=== PATIENT | male | born 1960 | race Caucasian/White ===

== ENCOUNTER 2016-09-21 15:20 | Emergency (ER) | payer SELFPAY ==
[2016-09-21 18:18] LABS: ABSOLUTE BASOPHILS # (AUTO) 0.1 10^3/uL (0.0-0.2); ABSOLUTE EOSINOPHILS # (AUTO) 0.2 10^3/uL (0.0-0.6); ABSOLUTE LYMPHOCYTES (AUTO) 1.2 10^3/uL (0.5-4.7); ABSOLUTE MONOCYTES (AUTO) 0.5 10^3/uL (0.1-1.4); ABSOLUTE NEUT (AUTO) 5.4 10^3/uL (1.7-8.2); BASOPHILS % (AUTO) 0.8 % (0-2); EOSINOPHILS % (AUTO) 3.1 % (0-6); HEMATOCRIT 43.1 % (37.9-51.0); HEMOGLOBIN 14.9 g/dL (13.5-17.0); HGB HCT DIFFERENCE 1.6; LYMPHOCYTES % (AUTO) 16.6 % (13-45); MEAN CORPUSCULAR HEMOGLOBIN 30.7 pg (27.0-33.4); MEAN CORPUSCULAR HGB CONC 34.5 g/dL (32.0-36.0); MEAN CORPUSCULAR VOLUME 89 fl (80-97); MONOCYTES % (AUTO) 6.9 % (3-13); RED BLOOD COUNT 4.85 10^6/uL (4.35-5.55); RED CELL DISTRIBUTION WIDTH 13.4 % (11.5-14.0); SEGMENTED NEUTROPHILS % (AUTO) 72.6 % (42-78); WHITE BLOOD COUNT 7.5 10^3/uL (4.0-10.5)
[2016-09-21] MEDS ORDERED: ONDANSETRON 4 MG TAB.RAPDIS SL ONE (18:27)
[2016-09-21 18:35] LABS: ALANINE AMINOTRANSFERASE 53 U/L (21-72); ALBUMIN 4.3 g/dL (3.5-5.0); ALKALINE PHOSPHATASE 51 U/L (38-126); ANION GAP 11 (5-19); ASPARTATE AMINO TRANSFERASE 25 U/L (17-59); BILIRUBIN,DIRECT 0.3 mg/dL (0.0-0.4); BILIRUBIN,TOTAL 0.9 mg/dL (0.2-1.3); BLOOD UREA NITROGEN 19 mg/dL (7-20); CALCIUM 9.6 mg/dL (8.4-10.2); CARBON DIOXIDE 27 mmol/L (22-30); CHLORIDE 106 mmol/L (98-107); CREATININE RESULT 1.13 mg/dL (0.52-1.25); GLUCOSE 102 mg/dL (75-110); LIPASE 387.1 U/L (23-300); POTASSIUM 4.4 mmol/L (3.6-5.0); TOTAL PROTEIN 7.5 g/dL (6.3-8.2)
--- NOTE | 2016-09-21 18:57 | ER Document Report ---
ED GI/ - General Chief Complaint: Abdominal Pain Stated Complaint: ABDOMINAL PAIN/RIGHT SHOULDER PAIN Time seen by provider: 18:57 Mode of Arrival: Ambulatory Information source: Patient TRAVEL OUTSIDE OF THE [place] IN LAST 30 DAYS: No - HPI Patient complains to provider of: Abdominal pain Onset: Yesterday Timing/Duration: Gradual Quality of pain: Achy Severity at maximum: Mild Severity in ED: Mild Location: Epigastric Associated symptoms: Nausea Exacerbated by: Denies Relieved by: Denies Similar symptoms previously: No Recently seen / treated by doctor: No Notes: 09/21/16 20:04 Patient is a 56-year-old male who presents to the emergency room complaining of epigastric pain with left shoulder pain and nausea that started yesterday evening, he reports that on Sunday he had a cardioversion performed in [place] , and over the past few days he was supposed to take it easy but he may have overdone it, he had a couple alcoholic beverages yesterday as well, denies any vomiting, no diarrhea, no fever or chills, no dysuria or hematuria, no sick contacts and no questionable food intake - Related Data Allergies/Adverse Reactions: No Known Allergies Allergy (Unverified 05/29/15 14:36) Past Medical History - General Information source: Patient - Social History Smoking Status: Never Smoker Chew tobacco use (# tins/day): No Frequency of alcohol use: Social Drug Abuse: Marijuana Family History: Reviewed & Not Pertinent Patient has suicidal ideation: No Patient has homicidal ideation: No - Past Medical History Cardiac Medical History: Reports: Hx Atrial Fibrillation, Hx Hypertension Renal/ Medical History: Denies: Hx Peritoneal Dialysis Past Surgical History: Reports: Hx Orthopedic Surgery - R hand R foot - Immunizations Hx Diphtheria, Pertussis, Tetanus Vaccination: No Review of Systems - Review of Systems Constitutional: No symptoms reported EENT: No symptoms reported Cardiovascular: No symptoms reported Respiratory: No symptoms reported Gastrointestinal: See HPI Genitourinary: No symptoms reported Male Genitourinary: No symptoms reported Musculoskeletal: See HPI Skin: No symptoms reported Hematologic/Lymphatic: No symptoms reported Neurological/Psychological: No symptoms reported -: Yes All other systems reviewed and negative Physical Exam - Vital signs Vitals: Temp Pulse Resp BP Pulse Ox 98.2 F 109 H 16 157/108 H 96 09/21/16 15:37 09/21/16 15:37 09/21/16 15:37 09/21/16 15:37 09/21/16 15:37 Interpretation: Normal - General General appearance: Appears well, Alert - HEENT Head: Normocephalic, Atraumatic Eyes: Normal Pupils: PERRL - Respiratory Respiratory status: No respiratory distress Chest status: Nontender Breath sounds: Normal Chest palpation: Normal - Cardiovascular Rhythm: Irregularly irregular Heart sounds: Normal auscultation Murmur: No - Abdominal Inspection: Normal, Obese Distension: No distension Bowel sounds: Normal Tenderness: Tender - Mild epigastric tenderness Organomegaly: No organomegaly - Back Back: Normal, Nontender - Extremities General upper extremity: Normal inspection, Nontender, Normal color, Normal ROM , Normal temperature General lower extremity: Normal inspection, Nontender, Normal color, Normal ROM , Normal temperature, Normal weight bearing. No: Nilda's sign - Neurological Neuro grossly intact: Yes Cognition: Normal Orientation: AAOx4 Saloni Coma Scale Eye Opening: Spontaneous [place] Coma Scale Verbal: Oriented [place] Coma Scale Motor: Obeys Commands Saloni Coma Scale Total: 15 Speech: Normal Motor strength normal: LUE, RUE, LLE, RLE Sensory: Normal - Psychological Associated symptoms: Normal affect, Normal mood - Skin Skin Temperature: Warm Skin Moisture: Dry Skin Color: Normal Course - Re-evaluation Re-evalutation: 09/21/16 20:05 Patient resting comfortably reports feeling much better after receiving ODT Zofran, lab findings were discussed with him at bedside which are remarkable for mildly elevated lipase, he does admit to drinking a few alcoholic beverages yesterday evening, he was advised to stop drinking alcohol, follow up with his primary care provider and his inspector repairer sandstone as needed or return if symptoms worsen, patient acknowledges understanding and agreement with this plan - Vital Signs Vital signs: Temp Pulse Resp BP Pulse Ox 98.3 F 102 H 20 142/102 H 95 09/21/16 19:01 09/21/16 19:01 09/21/16 19:01 09/21/16 19:01 09/21/16 19:01 - Laboratory Result Diagrams: 09/21/16 18:00 09/21/16 18:00 Laboratory results interpreted by me: 09/21/16 18:00 Lipase 387.1 H Discharge - Discharge Clinical Impression: Nausea Pancreatitis Qualifiers: Chronicity: acute Pancreatitis type: unspecified pancreatitis type Acute pancreatitis complication: no infection or necrosis Qualified Code(s): K85.90 - Acute pancreatitis without necrosis or infection, unspecified Condition: Stable Disposition: HOME, SELF-CARE Instructions: Abdominal Pain ([facility]), Pancreatitis ([facility]) Additional Instructions: Follow up with your primary care provider in one to 2 days. Return to the emergency room immediately if symptoms worsen or any additional concerns. Avoid alcohol products.
[2016-09-21] MEDS ORDERED: ONDANSETRON ODT 4 MG TAB (6 TAB/DSPK) PO PRN (19:11)
[2016-09-21 20:41] VITALS: BP 150/98
== END 2016-09-21 20:40 | disposition home or self-care (01) ==
LOC: ER 15:20
DX: K85.90 Acute pancreatitis without necrosis or infection, unspecified (principal); R11.0 Nausea; R10.9 Unspecified abdominal pain; M25.511 Pain in right shoulder; R10.13 Epigastric pain
CPT/HCPCS: 99284; 36415; 83690; 85025; 80053; S0119

== ENCOUNTER 2016-12-07 19:34 | Inpatient (IN) | payer OTHER ==
--- NOTE | 2016-12-07 19:55 | ER Document Report ---
ED Respiratory Problem - General Mode of Arrival: Ambulatory Information source: Patient TRAVEL OUTSIDE OF THE [place] IN LAST 30 DAYS: No - HPI Patient complains to provider of: CHF, Short of breath Onset: Other - Refer to HPI notes <WAYNE FLORES - Last Filed: 12/07/16 21:24> <CHEPE COX - Last Filed: 12/08/16 03:08> - General Stated Complaint: SHORTNESS OF BREATH Time Seen by Provider: 12/07/16 19:45 Notes: Patient is a 56-year-old male presenting to the emergency department for difficulty breathing and shortness of breath. Patient states his shortness of breath has been present for about 3 days. Patient's symptoms are exacerbated with movement and walking. Patient is also noticed some abdominal and lower extremity swelling. Patient came to the emergency department from his doctor's office due to being in A. fib with the shortness of breath. Patient was diagnosed with A. fib 2 months ago. Patient is taking Lasix, potassium, Cardizem, magnesium, and Eliquis. Patient told nurse that he has not been taking his Cardizem due to the high cost of the medication. Patient states he stopped taking his about 1 week ago. Patient started taking his Lasix again on Sunday, and started taking the rest of his medications on Sunday of this week. Patient also has a history of A. fib and has been cardioverted 2, CHF, and has a cardiac catheterization scheduled for this coming Sunday. Patient denies any chest pain. Patient has been sleeping upright in his chair at night to assist with his shortness of breath. Patient uses marijuana occasionally and alcohol occasionally. Patient has no known drug allergies. (WAYNE FLORES) - Related Data Allergies/Adverse Reactions: No Known Allergies Allergy (Verified 12/07/16 19:57) Home Medications: Current Home Medications Apixaban [Eliquis] 1 tab PO BID 12/07/16 [History] Diclofenac Sodium [Diclofenac Sodium] 1 tab PO BID PRN 12/07/16 [History] Diltiazem HCl [Cartia Xt] 1 cap PO DAILY 12/07/16 [History] Flecainide Acetate [Tambocor 100 Mg Tablet] 0.5 tab PO Q12H 12/07/16 [History] Furosemide [Furosemide] 1 tab PO DAILY 12/07/16 [History] Magnesium Oxide [Magnesium] 1 tab PO DAILY 12/07/16 [History] Potassium Chloride [Potassium Chloride] 1 tab PO BID 12/07/16 [History] Past Medical History - General Information source: Patient - Social History Smoking Status: Never Smoker Frequency of alcohol use: Occasional Drug Abuse: Marijuana Family History: None Patient has suicidal ideation: No Patient has homicidal ideation: No - Past Medical History Cardiac Medical History: Reports: Hx Atrial Fibrillation, Hx Congestive Heart Failure, Hx Hypertension Past Surgical History: Reports: Hx Orthopedic Surgery - R hand R foot - Immunizations Hx Diphtheria, Pertussis, Tetanus Vaccination: No <WAYNE FLORES - Last Filed: 12/07/16 21:24> Review of Systems - Review of Systems Constitutional: No symptoms reported EENT: No symptoms reported Cardiovascular: No symptoms reported Respiratory: See HPI, Short of breath, Wheezing Gastrointestinal: No symptoms reported Genitourinary: No symptoms reported Male Genitourinary: No symptoms reported Musculoskeletal: See HPI, Leg swelling Skin: No symptoms reported Hematologic/Lymphatic: No symptoms reported Neurological/Psychological: No symptoms reported -: Yes All other systems reviewed and negative <WAYNE FLORES - Last Filed: 12/07/16 21:24> Physical Exam - Vital signs Interpretation: Hypertensive <WAYNE FLORES - Last Filed: 12/07/16 21:24> <CHEPE COX - Last Filed: 12/08/16 03:08> - Vital signs Vitals: Resp BP Pulse Ox 24 H 159/125 H 96 12/07/16 19:39 12/07/16 19:39 12/07/16 19:39 - Notes Notes: GENERAL: Alert, interacts well. Mild distress. HEAD: Normocephalic, atraumatic. EYES: Appear normal. Pupils equal, round, and reactive to light. ENT: Moist mucus membranes, tongue midline. NECK: Full range of motion. Supple. Trachea midline. LUNGS: Crackles bilaterally, wheezing on the right, tachypnea, 99% oxygen saturation on 4 L of oxygen. HEART: Irregularly irregular, rate of 128. No murmurs, gallops, or rubs. ABDOMEN: Soft, non-tender. Non-distended. Normal bowel sounds. EXTREMITIES: Moves all 4 extremities spontaneously. Normal strength. 2+ pitting edema bilaterally. NEUROLOGICAL: Alert and oriented x3. Normal speech. No focal neurological deficits. GSC 15. PSYCH: Normal affect, normal mood. SKIN: Warm, dry, normal turgor. No rashes or lesions noted. (WAYNE FLORES) Course - Laboratory Result Diagrams: 12/07/16 19:50 12/07/16 19:50 <WAYNE FLORES - Last Filed: 12/07/16 21:24> - Laboratory Result Diagrams: 12/07/16 19:50 12/07/16 19:50 - Diagnostic Test Radiology reviewed: Image reviewed, Reports reviewed - Chest x-ray is read as basilar densities probably due to atelectasis, no other acute findings. CT scan shows moderate bilateral pleural effusions with atelectasis, no pulmonary embolus. - EKG Interpretation by Me EKG shows normal: Sinus rhythm, [place], QRS Complexes, ST-T Waves. abnormal: Intervals - Borderline prolonged QT interval Rate: Tachycardia - 106 Rhythm: A.Fib - Consults Dr. Nance Time consulted: 03:00 Consulted provider: will come to ER <CHEPE COX - Last Filed: 12/08/16 03:08> - Re-evaluation Re-evalutation: 12/07/16 21:32 The patient's initial urine was quite concentrated with a specific gravity of 1.036 Since the Lasix he has been urinating and it is much more dilute appearing. He is sitting up on the bedside with oxygen on with pulse ox of 99%. He still appears to be somewhat tachypneic. X-ray does not look like heart failure, BNP is only 615. D-dimer is 0.49. His lungs sound a little more clear now but initially, there is some wheezes. We will try DuoNeb to see if it improves his breathing before proceeding to CT scan. 12/08/16 00:49 The patient reports his breathing is better, his pulse ox 97% but this is on 4 L O2 nasal cannula. Respiratory rate is 28. The oxygen was turned off to see how he does without oxygen. 12/08/16 01:01 Shortly after I turned off his oxygen, the patient took off his monitor and ran out the front of the hospital saying something about looking for his . Eventually located in the parking lot by security and brought back. He stated he was not going to stay unless his stayed and there appears to be some sort of contentious issues between the 2 of them at this time. 12/08/16 01:55 The patient's heart rate had remained in the 105 range since he was first seen until he went outside and had the argument with his . Since he has returned to the room his heart rate has remained in the 130-140 range now for almost an hour. He is on 4 L of oxygen with pulse ox of 94-96%. He continues to deny having any chest pain. (CHEPE COX) - Vital Signs Vital signs: Temp Pulse Resp BP Pulse Ox 97.7 F 23 H 157/96 H 96 12/07/16 23:00 12/08/16 02:46 12/08/16 02:46 12/08/16 02:46 - Laboratory Laboratory results interpreted by me: 12/07/16 20:34 Urine Protein 30 H Urine Urobilinogen 4.0 H Discharge <WAYNE FLORES - Last Filed: 12/07/16 21:24> - Discharge Admitting Provider: Hospitalist Unit Admitted: [facility] <CHEPE COX - Last Filed: 12/08/16 03:08> - Discharge Clinical Impression: Pleural effusion, bilateral, Chronic atrial fibrillation, Noncompliance with medications, Wheezing, Atrial fibrillation with rapid ventricular response Dyspnea Qualifiers: Dyspnea type: shortness of breath Qualified Code(s): R06.02 - Shortness of breath Condition: Stable Disposition: ADMITTED INPATIENT Scribe Attestation: 12/08/16 00:53 I personally performed the services described in the documentation, reviewed and edited the documentation which was dictated to the scribe in my presence, and it accurately records my words and actions. (CHEPE COX) Scribe Documentation - Scribe Written by Ehsan:: Ehsan Sharif, 12/07/2016 21:19 acting as scribe for :: Roberto <WAYNE FLORES - Last Filed: 12/07/16 21:24>
[2016-12-07] MEDS ORDERED: FUROSEMIDE INJ/PF 40 MG/4 ML SDV IV ONE (20:07)
[2016-12-07 20:08] LABS: ABSOLUTE BASOPHILS # (AUTO) 0.1 10^3/uL (0.0-0.2); ABSOLUTE EOSINOPHILS # (AUTO) 0.3 10^3/uL (0.0-0.6); ABSOLUTE LYMPHOCYTES (AUTO) 1.3 10^3/uL (0.5-4.7); ABSOLUTE MONOCYTES (AUTO) 0.6 10^3/uL (0.1-1.4); ABSOLUTE NEUT (AUTO) 6.6 10^3/uL (1.7-8.2); BASOPHILS % (AUTO) 0.8 % (0-2); EOSINOPHILS % (AUTO) 3.8 % (0-6); HEMOGLOBIN 14.3 g/dL (13.5-17.0); HGB HCT DIFFERENCE -0.1; LYMPHOCYTES % (AUTO) 14.4 % (13-45); MEAN CORPUSCULAR HEMOGLOBIN 29.6 pg (27.0-33.4); MEAN CORPUSCULAR HGB CONC 33.2 g/dL (32.0-36.0); MEAN CORPUSCULAR VOLUME 89 fl (80-97); MONOCYTES % (AUTO) 6.4 % (3-13); RED BLOOD COUNT 4.82 10^6/uL (4.35-5.55); RED CELL DISTRIBUTION WIDTH 13.2 % (11.5-14.0); SEGMENTED NEUTROPHILS % (AUTO) 74.6 % (42-78); WHITE BLOOD COUNT 8.9 10^3/uL (4.0-10.5)
[2016-12-07 20:17] LABS: PROTHROMBIN TIME 14.7 SEC (11.4-15.4)
[2016-12-07 20:18] LABS: PARTIAL THROMBOPLASTIN TIME 26.6 SEC (23.5-35.8)
--- NOTE | 2016-12-07 20:19 | RADIOLOGY REPORT (SQ) ---
EXAM DESCRIPTION: CHEST SINGLE VIEW COMPLETED DATE/TIME: 12/07/2016 8:06 pm REASON FOR STUDY: dyspnea COMPARISON: Chest x-ray from [facility] dated 08/30/2016. EXAM PARAMETERS: NUMBER OF VIEWS: One view. TECHNIQUE: Single frontal radiographic view of the chest acquired. RADIATION DOSE: NA LIMITATIONS: None. FINDINGS: LUNGS AND PLEURA: Faint basilar densities. No masses or pneumothorax. No pleural effusion . MEDIASTINUM AND HILAR STRUCTURES: No masses. Contour normal. HEART AND VASCULAR STRUCTURES: Heart normal in size. Normal vasculature. BONES: No acute findings. HARDWARE: None in the chest. OTHER: No other significant finding. IMPRESSION: FAINT BASILAR DENSITIES PROBABLY DUE TO ATELECTASIS. NO OTHER ACUTE RADIOGRAPHIC FINDIN G IN THE CHEST. TECHNICAL DOCUMENTATION: JOB ID: [id number]
[2016-12-07 20:22] LABS: ALANINE AMINOTRANSFERASE 54 U/L (21-72); ALBUMIN 4.1 g/dL (3.5-5.0); ALKALINE PHOSPHATASE 61 U/L (38-126); ANION GAP 12 (5-19); ASPARTATE AMINO TRANSFERASE 27 U/L (17-59); BILIRUBIN,DIRECT 0.3 mg/dL (0.0-0.4); BLOOD UREA NITROGEN 15 mg/dL (7-20); CALCIUM 9.1 mg/dL (8.4-10.2); CARBON DIOXIDE 25 mmol/L (22-30); CHLORIDE 107 mmol/L (98-107); CREATINE KINASE 76 U/L (55-170); CREATININE RESULT 0.96 mg/dL (0.52-1.25); GLUCOSE 110 mg/dL (75-110); MAGNESIUM 1.9 mg/dL (1.6-2.3); POTASSIUM 3.7 mmol/L (3.6-5.0); SODIUM 143.7 mmol/L (137-145); TOTAL PROTEIN 7.3 g/dL (6.3-8.2)
[2016-12-07 20:33] LABS: CREATINE KINASE MB 1.89 ng/mL (<4.55); TROPONIN I 0.025 ng/mL
[2016-12-07 21:19] LABS: AMORPHOUS SEDIMENT,URINE TRACE /HPF; APPEARANCE,URINE SLIGHTLY-CLOUDY; BILIRUBIN,URINE NEGATIVE (NEGATIVE); GLUCOSE, URINE NEGATIVE (NEGATIVE); KETONES,URINE NEGATIVE (NEGATIVE); LEUKOCYTE ESTERASE,URINE NEGATIVE (NEGATIVE); NITRITE,URINE NEGATIVE (NEGATIVE); PROTEIN,URINE 30 mg/dL (NEGATIVE); URINE SPECIFIC GRAVITY 1.036
[2016-12-07] MEDS ORDERED: IPRATROPIUM/ALBUTEROL 0.5-2.5 MG/3 ML AMPUL NEB ONE (21:31)
[2016-12-07] MEDS ORDERED: ALBUTEROL SULFATE 0.083% NEB 2.5 MG/3 ML AMPUL NEB ONE (22:45)
[2016-12-07] MEDS ORDERED: METHYLPREDNISOLONE INJ 125 MG/2 ML SDV IV ONE (22:46)
--- NOTE | 2016-12-07 23:52 | RADIOLOGY REPORT (SQ) ---
EXAM DESCRIPTION: CTA CHEST COMPLETED DATE/TIME: 12/07/2016 11:32 pm REASON FOR STUDY: dyspnea, tachypnea, A-fib, elevated d-dimer COMPARISON: None. TECHNIQUE: CT scan of the chest performed using helical scanning technique with dynamic intravenous contrast injection. Images reviewed with lung, soft tissue and bone windows. Reconstructed coronal and sagittal MPR images reviewed. Additional 3 dimensional post-processing performed to develop Maximal Intensity Projection images (MS P). All images stored on PACS. All CT scanners at this facility use dose modulation, iterative reconstruction, and/or weight based d osing when appropriate to reduce radiation dose to as low as reasonably achievable (ALARA). [facility]: Dose Right [facility]: CareDose [facility]: Dose Right [facility]: Teradose 4D [facility]: [employer] Mobile Platform CONTRAST TYPE AND DOSE: contrast/concentration: Isovue 370.00 mg/ml; Total Contrast Delivered: 96.0 ml; Total Saline Delivered: 40.0 ml RENAL FUNCTION: Creatinine 0.96. RADIATION DOSE: Up-to-date CT equipment and radiation dose reduction techniques were employed. CTDIv ol: 27.8 mGy. DLP: 958 mGy-cm. . LIMITATIONS: None. FINDINGS: LUNGS AND PLEURA: Moderate bilateral pleural effusions with basilar atelectasis. No lobar infiltrates. No pneumothorax. AORTA AND GREAT VESSELS: No aneurysm or dissection. HEART: No pericardial effusion. PULMONARY ARTERIES: No emboli visualized in the main pulmonary arteries or the segmental branches. HILAR AND MEDIASTINAL STRUCTURES: No identified masses or abnormal nodes. HARDWARE: None in the chest. UPPER ABDOMEN: No significant findings. Limited exam. THYROID AND OTHER SOFT TISSUES: No masses. No adenopathy. BONES: No acute or significant finding. 3D MIPS: Confirm above findings. OTHER: No other significant finding. IMPRESSION: 1. NORMAL CTA OF THE CHEST. NO PULMONARY EMBOLI. 2. MODERATE BILATERAL PLEURAL EFFUSIONS WITH BASILAR ATELECTASIS. TECHNICAL DOCUMENTATION: JOB ID: [id number] Quality ID # [id number]: Final reports with documentation of one or more dose reduction techniques (e.g., Au tomated exposure control, adjustment of the mA and/or kV according to patient size, use of iterative reconstruction technique) 2010 [employer]- All Rights Reserved
[2016-12-08] MEDS ORDERED: IPRATROPIUM/ALBUTEROL 0.5-2.5 MG/3 ML AMPUL NEB ONE (01:14)
[2016-12-08] MEDS ORDERED: DILTIAZEM HCL INJ 25 MG/5 ML VIAL IV ONE ×2 (01:54→03:04)
[2016-12-08] MEDS ORDERED: DILTIAZEM HCL/D5W 125 ML IV PRN (01:55)
[2016-12-08 03:35] LABS: URINE BARBITURATES SCREEN NEGATIVE; URINE METHADONE SCREEN NEGATIVE; URINE OPIATES LOW NEGATIVE; URINE PHENCYCLIDINE SCREEN NEGATIVE
[2016-12-08] MEDS ORDERED: MAG HYDROX/AL HYDROX/SIMETH SUSP 30 ML UDCUP PO PRN (05:38)
[2016-12-08] MEDS ORDERED: PROMETHAZINE HCL 25 MG TABLET PO PRN (05:42)
[2016-12-08] MEDS ORDERED: ACETAMINOPHEN 325 MG TABLET PO PRN (05:42)
--- NOTE | 2016-12-08 05:56 | PDOC H&P ---
History of Present Illness Admission Date/PCP: 12/08/16 03:[address] Rivera Patient complains of: SOB History of Present Illness: NATALY PICHARDO is a 56 year old male with recently diagnosed atrial fibrillation, on Cardizem and Eliquis for same but no previous myocardial infarction, congestive heart failure, pulmonary embolus, or DVT. He presents to the emergency room for evaluation of a 3 day history of slowly progressive dyspnea on exertion, worsened with movement and walking. Has noted some abdominal and lower extremity swelling. Has been sleeping upright in a chair for the last night or so due to his shortness of breath. There has been no chest pain, nausea vomiting, fever chills, diarrhea or dysuria. Due to cost of the medication, he stopped his Cardizem Eliquis and Lasix for approximately 1 week; started back on these 2 days ago. Occasional dry cough, but nothing out of the ordinary. Patient has been discussed with emergency room physician who evaluated the patient. Emergency room physician was actually considering discharging the patient home when patient ran outside the emergency room. Security found him in the parking lot apparently arguing with a family member. Brought him back inside and shortly thereafter he went into atrial fibrillation with rapid ventricular response, requiring institution of Cardizem drip. Currently resting quietly, though still somewhat short of breath. Negative exercise treadmill study and echocardiogram shortly after his atrial fibrillation was initially diagnosed. Cardioverted 2. Is actually scheduled to undergo ablation Sunday of next week.. Laboratory results are listed in [facility] and are reviewed. X-ray summary results are listed below, with full report(s) reviewed. . EKG reviewed. No old EKG available for comparison. Social history/personal habits: . Employed in heating and air- conditioning. 2 children. No tobacco use. Occasional alcohol, but not very much or very often. Admits to smoking marijuana; denies other illicit drug use. Allergies/adverse reactions are listed in [facility] and are reviewed. Home medications initially autopopulated into [employer] may not accurately reflect patient's true medications, dosages, and/or frequencies. non destructive testing technician to reconcile medications. Unfortunately, patient not certain of all medications/dosages/frequencies. REVIEW OF SYSTEMS: Constitutional: No fever or chills. Eyes: No vision complaints. ENT: No swallowing problems or complaints. Denies hearing loss. Pulmonary: See history and present illness. Cardiovascular: No current complaints, including chest pain. Gastrointestinal: No current complaints, including nausea or vomiting. Skin: No current complaints, including rashes. Hematologic: Easy bruising. Neurologic: No current complaints, including numbness or tingling. Musculoskeletal: No current or chronic joint complaints, such as arthritis. Psychiatric: Denies anxiety or depression. Endocrine: No current complaints, including polyuria. Genitourinary: No current complaints, including dysuria. PHYSICAL EXAMINATION: 6 feet 1 inches tall. 120.2 kg. BMI 35 kg/m. Blood pressure 131/78. Pulse 109 slightly irregular, with Cardizem drip now down to 5 mg/h. 99% saturation on room air. Respirations are 24 and unlabored.Temperature 98.0. Obese but also somewhat stocky otherwise well-developed bearded male. Somewhat chronically ill in appearance. Appears a bit older than his stated age. Pleasant awake alert and cooperative. No obvious distress other than somewhat anxious. Daughter is present at his side; patient approves. Skin is warm and dry. No grossly obvious evidence of rash in areas of skin examined. No subcutaneous nodules palpated. ENT: Hearing grossly normal to normal conversation. Tongue midline on protrusion pink and slightly tacky. Eyes: No scleral icterus. Pupils equal and reactive to light at 4 mm. Wisner conjunctivae. Neck is supple and nontender to gentle active range of motion and palpation. Midline trachea. No palpable thyroid nodule mass enlargement or tenderness. Lymphatic: No palpable cervical or clavicular nodes. Neck and lymphatic exams limited by patient body habitus. Psychiatric: Reasonable insight into acute and chronic medical issues. Oriented to time location and why here. Lungs: Auscultation reveals clear and equal breath sounds bilaterally. No use of accessory respiratory muscles. Cardiovascular: Heart slightly irregular rate and rhythm, without gallop murmur or rub. No carotid or abdominal aortic bruits. No ankle edema. Abdomen:soft somewhat obese nontender with positive bowel sounds. Unable to adequately evaluate abdomen for masses or organomegaly due to body habitus. Extremities: Feet are warm and dry. No calf tenderness to compression. No grossly obvious visual evidence of calf swelling. Gentle manipulation of lower extremities fails to reveal any obvious evidence of injury or instability to knees hips or ankles. Neurologic: Moves upper extremities grossly normally. Patellar reflexes absent. Dorsiflexion and plantarflexion of feet 5 / 5 and symmetric. Past Medical History Cardiac Medical History: Reports: Atrial Fibrillation, Hypertension Denies: Congestive Heart Failure, DVT, Myocardial Infarction, Hyperlipidema, Pulmonary Embolism Pulmonary Medical History: Denies: Asthma, Chronic Obstructive Pulmonary Disease (COPD), Sleep Apnea EENT Medical History: Denies: Eyes, Ears, Throat Neurological Medical History: Denies: Hemorrhagic CVA, Ischemic CVA, Seizures Endocrine Medical History: Denies: Diabetes Mellitus Type 1, Diabetes Mellitus Type 2, Hyperthyroidism, Hypothyroidism Renal/ Medical History: Reports: None GI Medical History: Denies: Cirrhosis, Gastroesophageal Reflux Disease, Hepatitis, Peptic Ulcer Disease Musculoskeltal Medical History: Reports: None Skin Medical History: Reports: None Psychiatric Medical History: Denies: Alcohol Dependency, Depression, General Anxiety Disorder, Substance Abuse, Tobacco Dependency Hematology: Reports: Other - Easy bruising Infectious Medical History: Reports: Methicillin-Resistant Staph Aureus Denies: Clostridium Difficile, Hepatitis B, Hepatitis C Past Surgical History Past Surgical History: Reports: Orthopedic Surgery - R hand R foot Social History Information Source: Patient, Emergency Med Personnel, [facility] Records Lives with: Spouse/Significant other Smoking Status: Never Smoker Frequency of Alcohol Use: Occasional Drugs: Marijuana - Advance Directive Resuscitation Status: Full Code Surrogate healthcare decision maker:: Family History Family History: None Parental Family History Reviewed: Yes - Mother of uncertain cause; father congestive heart failure. Children Family History Reviewed: Yes - Son with prostate problems. Sibling(s) Family History Reviewed.: Yes - Brother and sister each of cancer. Medication/Allergy Home Medications: Apixaban [Eliquis] 2 tab PO Q12 12/07/16 Magnesium Oxide [Magnesium] 1 tab PO DAILY 12/07/16 Potassium Chloride 1 tab PO Q12 12/07/16 Acetaminophen [Tylenol 325 mg Tablet] 650 mg PO Q4HP PRN tablet 12/09/16 Alprazolam [Xanax 0.5 mg Tablet] 0.5 mg PO Q8HP PRN #7 tablet 12/09/16 Apixaban [Eliquis 5 mg Tablet] 10 mg PO BID #10 tablet 12/09/16 Diltiazem HCl [Cartia Xt] 1 cap PO DAILY #30 cap.sr.24h 12/09/16 Flecainide Acetate [Tambocor 100 mg Tablet] 100 mg PO Q12 #20 tablet 12/09/16 Allergies/Adverse Reactions: No Known Allergies Allergy (Verified 12/07/16 19:57) Physical Exam Vital Signs: Temp Pulse Resp BP Pulse Ox 98.0 F 113 H 24 H 121/86 H 98 12/08/16 04:23 12/08/16 04:23 12/08/16 05:01 12/08/16 05:01 12/08/16 05:01 Results Impressions: Chest X-Ray 12/07/16 19:36 IMPRESSION: FAINT BASILAR DENSITIES PROBABLY DUE TO ATELECTASIS. NO OTHER ACUTE RADIOGRAPHIC FINDING IN THE CHEST. Chest/Abdomen CTA 12/07/16 22:45 IMPRESSION: 1. NORMAL CTA OF THE CHEST. NO PULMONARY EMBOLI. 2. MODERATE BILATERAL PLEURAL EFFUSIONS WITH BASILAR ATELECTASIS. Assessment & Plan - Diagnosis (1) Anticoagulated Is this a current diagnosis for this admission?: YesPlan: Resume home medications as appropriate once these have been determined and reviewed. (2) Atrial fibrillation with rapid ventricular response Is this a current diagnosis for this admission?: YesPlan: Maintain Cardizem drip, and wean from same as tolerated. Patient will be placed in observation bed. Patient understands to notify staff should he develop chest pain. Serial troponin . I have strongly encouraged patient to be careful getting out of bed without notifying staff, to avoid a fall with injury. Knee high SCDs for DVT prophylaxis. Impression and plans were discussed with patient and daughter, both of whom concur. Time spent in evaluation and management of patient: 62 minutes. (3) Dyspnea Qualifiers: Dyspnea type: shortness of breath Qualified Code(s): R06.02 - Shortness of breath Is this a current diagnosis for this admission?: YesPlan: Likely due at least in part to his bilateral pleural effusions. Incentive spirometry twice daily. (4) Noncompliance with medications Is this a current diagnosis for this admission?: Yes (5) Pleural effusion, bilateral Is this a current diagnosis for this admission?: YesPlan: Possibly due to an element of congestive heart failure, with patient having been off medications earlier, as described in history of present illness. (6) History of MRSA infection Is this a current diagnosis for this admission?: YesPlan: Contact precautions
--- NOTE | 2016-12-08 08:15 | EKG REPORT ---
SEVERITY:- ABNORMAL ECG - ATRIAL FIBRILLATION, V-RATE 79-138 BORDERLINE PROLONGED QT INTERVAL : Confirmed by: Moises Wilkins MD 08-Dec-2016 08:15:40
--- NOTE | 2016-12-08 12:58 | Progress Note ---
Provider Note Provider Note: follow up note. pt admitted this morning by dr wilson with recurrent afib and rvr due to medical noncompliance 2/2 financial concerns. he remains on cardizem gtt at 10mg/hr but his ventricular rate is not well controlled still hovering between 110-130. he is asymptomatic. he informs me that he was scheduled for ablation next week after failing electrocardioversion x2. I reached out to dr mcclendon, cardiology in [place] to coordinate his care but have yet to hear back from him.
[2016-12-08] MEDS: DILTIAZEM HCL/D5W 125 ML IV PRN ×2 (13:32→21:45)
[2016-12-08] MEDS ORDERED: RIVAROXABAN 10 MG TABLET PO SCH (17:00)
[2016-12-08] MEDS ORDERED: ALPRAZOLAM 0.5 MG TABLET PO PRN (17:59)
[2016-12-08] MEDS ORDERED: METOPROLOL TARTRATE PF/INJ 5 MG/5 ML SDV IV ONE (19:00)
[2016-12-08] MEDS: FLECAINIDE ACETATE 100 MG TABLET PO SCH (21:09)
[2016-12-09] MEDS: FLECAINIDE ACETATE 100 MG TABLET PO SCH (09:53)
[2016-12-09] MEDS ORDERED: DILTIAZEM HCL 240 MG CAPSULE.CR PO ONE (10:00)
[2016-12-09] MEDS ORDERED: APIXABAN 5 MG TABLET PO SCH (10:00)
[2016-12-09 14:05] VITALS: BP 143/91
--- NOTE | 2016-12-09 15:25 | PDOC DISCHARGE SUMMARY ---
General - Admit/Disc Date/PCP Admission Date/Primary Care Provider: 12/08/16 11:31 Discharge Date: 12/09/16 - Discharge Diagnosis (1) Atrial fibrillation with rapid ventricular response Is this a current diagnosis for this admission?: YesSummary: due to medical noncompliance with rate controlling meds due to financial concerns; rate now controlled back on his usual regimen with Rx's provided for those meds. he has f/u appt with dr mcclendon on sunday for cardiac ablation so he should hold his anticoagulation as of Sunday night. (2) Anticoagulated Is this a current diagnosis for this admission?: YesSummary: states he has a month's supply of eliquis at home; hold as of Sunday in anticipation of ablation on Sunday (3) Pleural effusion, bilateral Is this a current diagnosis for this admission?: YesSummary: mild bilat pleural effusions seen on ct scan likely due to uncontrolled afib; appears clinically euvolemic so hold diuretic until after his procedure then resume under medical direction with his primary physician asst or PCP - Additional Information Resuscitation Status: Full Code Discharge Diet: Cardiac Discharge Activity: Activity As Tolerated, Balance Activity w/Rest Home Medications: Apixaban [Eliquis] 2 tab PO Q12 12/07/16 Magnesium Oxide [Magnesium] 1 tab PO DAILY 12/07/16 Potassium Chloride 1 tab PO Q12 12/07/16 Acetaminophen [Tylenol 325 mg Tablet] 650 mg PO Q4HP PRN tablet 12/09/16 Alprazolam [Xanax 0.5 mg Tablet] 0.5 mg PO Q8HP PRN #7 tablet 12/09/16 Apixaban [Eliquis 5 mg Tablet] 10 mg PO BID #10 tablet 12/09/16 Diltiazem HCl [Cartia Xt] 1 cap PO DAILY #30 cap.sr.24h 12/09/16 Flecainide Acetate [Tambocor 100 mg Tablet] 100 mg PO Q12 #20 tablet 12/09/16 History of Present Illness Patient complains of: SOA History of Present Illness: NATALY PICHARDO is a 56 year old male with recently diagnosed atrial fibrillation, on Cardizem and Eliquis for same but no previous myocardial infarction, congestive heart failure, pulmonary embolus, or DVT. He presents to the emergency room for evaluation of a 3 day history of slowly progressive dyspnea on exertion, worsened with movement and walking. Has noted some abdominal and lower extremity swelling. Has been sleeping upright in a chair for the last night or so due to his shortness of breath. Hospital Course Hospital Course: per dr wilson "There has been no chest pain, nausea vomiting, fever chills, diarrhea or dysuria. Due to cost of the medication, he stopped his Cardizem Eliquis and Lasix for approximately 1 week; started back on these 2 days ago. Occasional dry cough, but nothing out of the ordinary. Patient has been discussed with emergency room physician who evaluated the patient. Emergency room physician was actually considering discharging the patient back home when patient ran outside the emergency room. Security found him in the parking lot apparently arguing with a family member. Brought him back inside and shortly thereafter he went into atrial fibrillation with rapid ventricular response, requiring institution of Cardizem drip. Currently resting quietly, though still somewhat short of breath. Negative exercise treadmill study and echocardiogram shortly after his atrial fibrillation was initially diagnosed. Cardioverted 2. Is actually scheduled to undergo ablation Sunday of next week.." he was admitted on cardizem gtt that was titrated to effect and changed to oral cardizem 240mg CD which is his usual home dose with good control of his rate. he was resumed on the flecainide per dr mcclendon's instructions to me via phone at 100mg bid and continued on anticoagulation while here. he is stable for d/c home at this time with HR sustained below 100. rx's provided for necessary meds , he expresses no concerns to me about going home, is quite anxious for discharge home at this time. f/u as already arranged. Physical Exam Vital Signs: Temp Pulse Resp BP Pulse Ox 98.1 F 96 16 143/91 H 96 12/09/16 13:55 12/09/16 13:55 12/09/16 13:55 12/09/16 13:55 12/09/16 13:55 Intake & Output 12/08/16 12/09/16 12/10/16 06:59 06:59 06:59 Intake Total 1795 Output Total 850 Balance 945 Weight 116.4 kg General appearance: PRESENT: no acute distress, well-developed, well-nourished Mouth exam: PRESENT: moist Respiratory exam: PRESENT: clear to auscultation jadon. ABSENT: accessory muscle use Cardiovascular exam: PRESENT: irregular rhythm. ABSENT: systolic murmur, tachycardia GI/Abdominal exam: PRESENT: soft Neurological exam: PRESENT: alert, awake Results Impressions: Chest X-Ray 12/07/16 19:36 IMPRESSION: FAINT BASILAR DENSITIES PROBABLY DUE TO ATELECTASIS. NO OTHER ACUTE RADIOGRAPHIC FINDING IN THE CHEST. Chest/Abdomen CTA 12/07/16 22:45 IMPRESSION: 1. NORMAL CTA OF THE CHEST. NO PULMONARY EMBOLI. 2. MODERATE BILATERAL PLEURAL EFFUSIONS WITH BASILAR ATELECTASIS. Qualifiers PATEINT BEING DISCHARGED WITH ANY OF THE FOLLOWING DIAGNOSIS?: No VTE patient discharged on overlapping Therapy?: No Reason(s) for not prescribing Overlap Therapy:: Not indicated Plan Discharge Plan: as above Time Spent: Greater than 30 Minutes
== END 2016-12-09 14:57 | disposition home or self-care (01) | DRG 309 ==
LOC: ER 19:34 → UNDOADMOB 12-08 03:40 → INTOOBSV 12-08 03:40 → EH 12-08 03:40 → 3N 12-08 05:38 → OBSVTOIN 12-08 11:31
PROVIDERS: ADMIT Family Medicine; ATTEND Family Medicine
DX: I48.2 Chronic atrial fibrillation (principal); J90 Pleural effusion, not elsewhere classified; T46.1X6A Underdosing of calcium-channel blockers, initial encounter; T45.516A Underdosing of anticoagulants, initial encounter; T50.1X6A Underdosing of loop [high-ceiling] diuretics, initial encounter; F12.90 Cannabis use, unspecified, uncomplicated; Z91.120 Patient's intentional underdosing of medication regimen due to financial hardship; Z86.14 Personal history of Methicillin resistant Staphylococcus aureus infection; Z79.01 Long term (current) use of anticoagulants
CPT/HCPCS: 36415; 71010; 71275; 80053; 80307; 81001; 82550; 82553; 83735; 83880; 84443; 84484; 85025; 85379; 85610; 85730; 93005; 93010; 94640; 94799; 96365; 96375; 99285; G0378; J1940; J2930; J3490; J7620

== ENCOUNTER 2017-02-04 16:03 | Emergency (ER) | payer SELFPAY ==
[2017-02-04] MEDS ORDERED: OXYCODONE-ACETAMINOPHEN 5-325 MG TABLET PO ONE (16:59)
--- NOTE | 2017-02-04 17:35 | RADIOLOGY REPORT (SQ) ---
EXAM DESCRIPTION: SHOULDER RIGHT 2 OR MORE VIEWS COMPLETED DATE/TIME: 02/04/2017 5:24 pm REASON FOR STUDY: fall, pain COMPARISON: None. NUMBER OF VIEWS: Three views. TECHNIQUE: Internal rotation, external rotation, and Y view images acquired of the right shoulder. LIMITATIONS: None. FINDINGS: MINERALIZATION: Normal. BONES: No acute fracture or dislocation. No worrisome bone lesions. JOINTS: No dislocation. VISUALIZED LUNGS AND RIBS: No pneumothorax. No rib fracture. SOFT TISSUES: No radiopaque foreign body. OTHER: No other significant finding. IMPRESSION: NO RADIOGRAPHIC EVIDENCE OF ACUTE INJURY. TECHNICAL DOCUMENTATION: JOB ID: [id number] [employer]- All Rights Reserved
--- NOTE | 2017-02-04 17:44 | ER Document Report ---
ED Extremity Problem, Upper - General Chief Complaint: Shoulder Pain Stated Complaint: RIGHT SHOULDER AND ARM INJURY Time Seen by Provider: 02/04/17 16:36 Mode of Arrival: Ambulatory Information source: Patient Notes: Patient is a 56-year-old male who presents to the ER today for right shoulder injury after falling 2 days ago. Patient states that he lost his footing and fell, trying to catch himself with the right arm and ended up reinjuring his shoulder. Patient is currently diagnosed with a rotator cuff injury but has not had any treatment such as rehab for it. He denies any pain anywhere else. States that at this time it is very difficult to lift the arm at all at the shoulder and he has very limited range of motion. He denies any numbness or tingling. TRAVEL OUTSIDE OF THE [place] IN LAST 30 DAYS: No - Related Data Allergies/Adverse Reactions: No Known Allergies Allergy (Verified 02/04/17 16:07) Past Medical History - General Information source: Patient - Social History Smoking Status: Former Smoker Chew tobacco use (# tins/day): No Frequency of alcohol use: Occasional Drug Abuse: Marijuana Family History: None - Past Medical History Cardiac Medical History: Reports: Hx Atrial Fibrillation, Hx Hypertension Denies: Hx Congestive Heart Failure, Hx DVT, Hx Heart Attack, Hx Hypercholesterolemia, Hx Pulmonary Embolism Pulmonary Medical History: Denies: Hx Asthma, Hx COPD, Hx Sleep Apnea Neurological Medical History: Denies: Hx Seizures Endocrine Medical History: Denies: Hx Diabetes Mellitus Type 1, Hx Diabetes Mellitus Type 2, Hx Hyperthyroidism, Hx Hypothyroidism Renal/ Medical History: Denies: Hx Peritoneal Dialysis GI Medical History: Denies: Hx Cirrhosis, Hx Gastroesophageal Reflux Disease, Hx Hepatitis Psychiatric Medical History: Denies: Hx Depression Infectious Medical History: Reports: Hx MRSA. Denies: Hx C-Diff, Hx Hepatitis Past Surgical History: Reports: Hx Cardiac Catheterization, Hx Orthopedic Surgery - R hand R foot - Immunizations Hx Diphtheria, Pertussis, Tetanus Vaccination: No Review of Systems - Review of Systems Constitutional: No symptoms reported EENT: No symptoms reported Cardiovascular: No symptoms reported Respiratory: No symptoms reported Gastrointestinal: No symptoms reported Genitourinary: No symptoms reported Male Genitourinary: No symptoms reported Musculoskeletal: See HPI Skin: No symptoms reported Hematologic/Lymphatic: No symptoms reported Neurological/Psychological: No symptoms reported Physical Exam - Vital signs Vitals: Temp Pulse Resp BP Pulse Ox 97.8 F 68 16 119/72 97 02/04/17 16:07 02/04/17 16:07 02/04/17 16:07 02/04/17 16:07 02/04/17 16:07 - Notes Notes: Patient states they have a ride home and are not driving. PHYSICAL EXAMINATION : GENERAL: Well-appearing and in no acute distress. HEAD: Atraumatic, normocephalic. EYES: Pupils equal round and reactive to light, extraocular movements intact, sclera anicteric, conjunctiva are normal. NECK: Normal range of motion, supple without lymphadenopathy LUNGS: CTAB and equal. No wheezes rales or rhonchi. HEART: Regular rate and rhythm without murmurs ABDOMEN: Soft, no tenderness. No guarding, no rebound BACK: no vertebral tenderness, normal ROM GI/: no CVA tenderness EXTREMITIES:very limited active range of motion of the right shoulder with extension, flexion and abduction, better passive ROM but with pain on these movements, tenderness to right posterior shoulder, no pitting edema. No cyanosis. NEUROLOGICAL: Cranial nerves grossly intact. Normal sensory/motor exams. PSYCH: Normal mood, normal affect. SKIN: Warm, Dry, normal turgor, no rashes or lesions noted Course - Re-evaluation Re-evalutation: 02/04/17 21:36 X-ray was negative for any acute pathology of the shoulder. Patient was placed in a sling and had follow-up with orthopedics for MRI of his rotator cuff. I did advise that he take it out of the sling and move it 2-5 times per day as much as he could to prevent frozen shoulder but no more than 5 times per day. - Vital Signs Vital signs: Temp Pulse Resp BP Pulse Ox 98.4 F 77 17 124/65 98 02/04/17 17:57 02/04/17 17:57 02/04/17 17:57 02/04/17 17:57 02/04/17 17:57 Discharge - Discharge Clinical Impression: Shoulder injury Qualifiers: Encounter type: initial encounter Laterality: right Qualified Code(s): S49.91XA - Unspecified injury of right shoulder and upper arm, initial encounter Condition: Stable Disposition: HOME, SELF-CARE Additional Instructions: Return immediately for any new or worsening symptoms. Follow up with orthopedic doctor, call tomorrow to make followup appointment. Prescriptions: Acetaminophen with Codeine [Tylenol #3 Tablet] 1 each PO Q4HP PRN #15 tablet PRN Reason: Forms: Return to Work Referrals: MAIA ROSE MD [Primary Care Provider] - Follow up as needed ALE KHALIL MD [ACTIVE STAFF] - Follow up as needed
[2017-02-04 17:59] VITALS: BP 124/65
== END 2017-02-04 17:59 | disposition home or self-care (01) ==
LOC: ER 16:03
DX: S49.91XA Unspecified injury of right shoulder and upper arm, initial encounter (principal); W19.XXXA Unspecified fall, initial encounter; I48.91 Unspecified atrial fibrillation; I10 Essential (primary) hypertension; Z87.891 Personal history of nicotine dependence; Z86.14 Personal history of Methicillin resistant Staphylococcus aureus infection
CPT/HCPCS: 99283

== ENCOUNTER 2017-06-25 07:03 | Emergency (ER) | payer OTHER ==
--- NOTE | 2017-06-25 07:52 | EKG REPORT ---
SEVERITY:- ABNORMAL ECG - SINUS TACHYCARDIA MULTIPLE PREMATURE COMPLEXES, SUPRAVEN BORDERLINE T ABNORMALITIES, INFERIOR LEADS BORDERLINE PROLONGED QT INTERVAL : Confirmed by: Moises Wilkins MD 25-Jun-2017 07:51:18
[2017-06-25] MEDS ORDERED: IBUPROFEN 600 MG TABLET PO ONE (08:08)
--- NOTE | 2017-06-25 08:12 | ER Document Report ---
ED General - General Chief Complaint: Swelling of Lower Extremity Stated Complaint: SWELLING Time Seen by Provider: 06/25/17 07:46 Notes: 57-year-old male with a history of ablated A. fib versus SVT, heart failure on chronic Eliquis and Lasix presents with leg swelling. This is been going on for 3 days because he took a road trip to [place] for a family and stopped taking all of his meds. He is also run out of Eliquis and cannot afford to fill it. He has no chest pain or shortness of breath. Leg swelling is been constant. He also has achiness in his neck and left wrist. He denies recurrent use, any trauma or accidents, history of gout, or fever chills. TRAVEL OUTSIDE OF THE [place] IN LAST 30 DAYS: No - Related Data Allergies/Adverse Reactions: No Known Allergies Allergy (Verified 06/25/17 07:04) Past Medical History - Social History Smoking Status: Current Every Day Smoker Family History: None - Past Medical History Cardiac Medical History: Reports: Hx Atrial Fibrillation, Hx Hypertension Denies: Hx Congestive Heart Failure, Hx DVT, Hx Heart Attack, Hx Hypercholesterolemia, Hx Pulmonary Embolism Pulmonary Medical History: Denies: Hx Asthma, Hx COPD, Hx Sleep Apnea Neurological Medical History: Denies: Hx Seizures Endocrine Medical History: Denies: Hx Diabetes Mellitus Type 1, Hx Diabetes Mellitus Type 2, Hx Hyperthyroidism, Hx Hypothyroidism Renal/ Medical History: Denies: Hx Peritoneal Dialysis GI Medical History: Denies: Hx Cirrhosis, Hx Gastroesophageal Reflux Disease, Hx Hepatitis Psychiatric Medical History: Denies: Hx Depression Infectious Medical History: Reports: Hx MRSA. Denies: Hx C-Diff, Hx Hepatitis Past Surgical History: Reports: Hx Cardiac Catheterization, Hx Orthopedic Surgery - R hand R foot - Immunizations Hx Diphtheria, Pertussis, Tetanus Vaccination: No Review of Systems - Review of Systems Notes: REVIEW OF SYSTEMS GEN: Denies fever, chills, weight loss ENT: Denies sore throat, nasal discharge, ear pain EYES: Denies blurry vision, eye pain, discharge CV: Denies chest pain, palpitations, edema RESP: Denies cough, shortness of breath, wheezing GI: Denies abdominal pain, nausea, vomiting, diarrhea MSK: Lateral leg edema, sore left wrist. Sore neck. SKIN: Denies rash, skin lesions LYMPH: Denies swollen glands/lymph nodes NEURO: Denies headache, focal weakness or numbness, dizziness PSYCH: Denies depression, suicidal or homicidal ideation PHYSICAL EXAMINATION General: No acute distress, well-nourished Head: Atraumatic, normocephalic ENT: Mouth normal, oropharynx moist, no exudates or tonsillar enlargement Eyes: Conjunctiva normal, pupils equal, lids normal Neck: No JVD, supple, no guarding. Slight pain on rotational range of motion. CVS: Irregularly irregular no murmurs or gallops Resp: No resp distress, equal and normal breath sounds bilaterally GI: Nondistended, soft, no tenderness to palpation, no rebound or guarding Ext: Mild left wrist pain on movement without appreciable swelling or effusion or warmth. Bilateral lower extremity edema 2+. Back: No CVA or midline TTP Skin: No rash, warm Lymphatic: No lymphadeopathy noted Neuro: Awake, alert. Face symmetric. GCS 15. Physical Exam - Vital signs Vitals: Temp Pulse Resp BP Pulse Ox 99.1 F 106 H 18 126/81 H 95 06/25/17 07:04 06/25/17 07:04 06/25/17 07:04 06/25/17 07:04 06/25/17 07:04 Course - Re-evaluation Re-evalutation: 06/25/17 08:11 57-year-old male presents with leg swelling in the setting of missing diuretic doses. He takes chronic anticoagulation for what sounds like A. fib status post ablation versus ongoing arrhythmia. In the ED on the monitor he is in sinus rhythm with premature atrial contractions but his ECG is reading A. fib. I think this is due to baseline I will repeated. We will give him empiric Lasix , Motrin for his aches. I do not think that his wrist is infected but rather has an overuse or acute arthritis going on. His neck has some muscular tenderness but is not rigid and is able to range normally so I doubt meningitis or infection up there. 06/25/17 09:02 Patient has no significant lab abnormalities and a clear chest x-ray. He was given IV Lasix in the ED. 06/25/17 09:46 Monitor tracing at 9:46 AM shows normal sinus rhythm. Patient is urinated after Lasix. He is comfortable. He can get his meds he has run out of Eliquis , metoprolol and diclofenac. This is likely why he is having aches and pains. I will speak with social work because these all have refills left at the pharmacy, in order to help him afford them. He will be discharged home in stable condition to follow-up with his primary care. I have discussed with the patient there likely diagnosis, aftercare plan, follow -up plans and my usual and customary return precautions. They verbalized understanding of this. 06/25/17 09:50 EKG #2 shows normal sinus rhythm. I think that the past EKG was artifact rather than atrial for ablation. - Vital Signs Vital signs: Temp Pulse Resp BP Pulse Ox 99.1 F 107 H 19 162/94 H 97 06/25/17 07:20 06/25/17 07:20 06/25/17 08:04 06/25/17 08:04 06/25/17 08:04 - Laboratory Result Diagrams: 06/25/17 08:04 06/25/17 08:04 Laboratory results interpreted by me: 06/25/17 06/25/17 08:04 08:04 WBC 12.1 H Seg Neutrophils % 81.8 H Lymphocytes % 7.6 L Absolute Neutrophils 9.9 H Sodium 135.6 L Chloride 95 L Carbon Dioxide 31 H Glucose 116 H - EKG Interpretation by Me EKG shows normal: Sinus rhythm Rate: Normal Rhythm: NSR, APC's When compared to previous EKG there are: Changes noted - Sinus rhythm with premature conducted atrial contractions versus A. fib. Old EKG shows A. fib. Discharge - Discharge Clinical Impression: Peripheral edema Condition: Good Disposition: HOME, SELF-CARE Instructions: Congestive Heart Failure ([facility]) Additional Instructions: It is important Andrew medications. Eliquis metoprolol and diclofenac. Social work has worked with you to decrease the cost. Please follow-up with your primary care provider and take all your medicines as prescribed. Referrals: MAIA ROSE MD [Primary Care Provider] - Follow up in 3-5 days
[2017-06-25 08:23] LABS: ABSOLUTE BASOPHILS # (AUTO) 0.1 10^3/uL (0.0-0.2); ABSOLUTE EOSINOPHILS # (AUTO) 0.1 10^3/uL (0.0-0.6); ABSOLUTE LYMPHOCYTES (AUTO) 0.9 10^3/uL (0.5-4.7); ABSOLUTE MONOCYTES (AUTO) 1.2 10^3/uL (0.1-1.4); ABSOLUTE NEUT (AUTO) 9.9 10^3/uL (1.7-8.2); BASOPHILS % (AUTO) 0.4 % (0-2); EOSINOPHILS % (AUTO) 0.6 % (0-6); HEMATOCRIT 41.1 % (37.9-51.0); HEMOGLOBIN 14.6 g/dL (13.5-17.0); LYMPHOCYTES % (AUTO) 7.6 % (13-45); MEAN CORPUSCULAR HEMOGLOBIN 31.4 pg (27.0-33.4); MEAN CORPUSCULAR HGB CONC 35.4 g/dL (32.0-36.0); MEAN CORPUSCULAR VOLUME 89 fl (80-97); MONOCYTES % (AUTO) 9.6 % (3-13); PLATELET COUNT 195 10^3/uL (150-450); RED BLOOD COUNT 4.64 10^6/uL (4.35-5.55); RED CELL DISTRIBUTION WIDTH 12.1 % (11.5-14.0); SEGMENTED NEUTROPHILS % (AUTO) 81.8 % (42-78); TOTAL CELLS COUNTED % (AUTO) 100 %; WHITE BLOOD COUNT 12.1 10^3/uL (4.0-10.5)
--- NOTE | 2017-06-25 08:36 | RADIOLOGY REPORT (SQ) ---
EXAM DESCRIPTION: CHEST PA/LAT COMPLETED DATE/TIME: 06/25/2017 8:02 am REASON FOR STUDY: SOB, fluid retention COMPARISON: None. EXAM PARAMETERS: NUMBER OF VIEWS: two views TECHNIQUE: Digital Frontal and Lateral radiographic views of the chest acquired. RADIATION DOSE: NA LIMITATIONS: none FINDINGS: LUNGS AND PLEURA: No opacities, masses or pneumothorax. No pleural effusion. MEDIASTINUM AND HILAR STRUCTURES: No masses or contour abnormalities. HEART AND VASCULAR STRUCTURES: Heart normal size. No evidence for failure. BONES: No acute findings. HARDWARE: None in the chest. OTHER: No other significant finding. IMPRESSION: NO SIGNIFICANT RADIOGRAPHIC FINDING IN THE CHEST. TECHNICAL DOCUMENTATION: JOB ID: [id number] [employer]- All Rights Reserved
[2017-06-25 08:39] LABS: ANION GAP 10 (5-19); BLOOD UREA NITROGEN 18 mg/dL (7-20); CALCIUM 9.5 mg/dL (8.4-10.2); CARBON DIOXIDE 31 mmol/L (22-30); CHLORIDE 95 mmol/L (98-107); GLUCOSE 116 mg/dL (75-110); MAGNESIUM 1.9 mg/dL (1.6-2.3); POTASSIUM 3.7 mmol/L (3.6-5.0); SODIUM 135.6 mmol/L (137-145)
[2017-06-25 08:50] LABS: NT PRO BNP 167 pg/mL (5-900)
[2017-06-25 08:54] LABS: TROPONIN I < 0.012 ng/mL
[2017-06-25 10:14] VITALS: BP 131/88
--- NOTE | 2017-06-25 12:52 | EKG REPORT ---
SEVERITY:- ABNORMAL ECG - SINUS RHYTHM NONSPECIFIC T ABNORMALITIES, INFERIOR LEADS : Confirmed by: Moises Wilkins MD 25-Jun-2017 12:51:39
== END 2017-06-25 10:26 | disposition home or self-care (01) ==
LOC: ER 07:03
DX: R60.0 Localized edema (principal); T50.1X6A Underdosing of loop [high-ceiling] diuretics, initial encounter; Z91.128 Patient's intentional underdosing of medication regimen for other reason; Z91.14 Patient's other noncompliance with medication regimen; I49.1 Atrial premature depolarization; I10 Essential (primary) hypertension; M54.2 Cervicalgia; M25.532 Pain in left wrist; T39.396A Underdosing of other nonsteroidal anti-inflammatory drugs [NSAID], initial encounter; F17.200 Nicotine dependence, unspecified, uncomplicated
CPT/HCPCS: 36415; 71046; 80048; 83735; 83880; 84484; 85025; 93005; 93010; 99284

== ENCOUNTER 2018-01-19 15:24 | Emergency (ER) | payer OTHER ==
[2018-01-19] MEDS ORDERED: ONDANSETRON HCL INJ/PF 4 MG/2 ML SDV IV ONE (15:49)
[2018-01-19] MEDS ORDERED: HYDROMORPHONE HCL INJ/PF 2 MG/ML AMPULE IV ONE ×2 (15:49→17:59)
--- NOTE | 2018-01-19 15:54 | ER Document Report ---
ED General - General Chief Complaint: Fall Stated Complaint: FALL/BACK PAIN Time Seen by Provider: 01/19/18 15:48 Mode of Arrival: Ambulatory Information source: Patient, Relative, [facility] Records Notes: 57-year-old male with atrial fibrillation(on Eliquis), hypertension, hyperlipidemia presents via EMS from home after falling off his ladder while working on his house. Patient states that he fell off his ladder because it became unbalanced. He states he fell approximately 3-4 feet directly onto his back onto the ground and on top of a tree stump. Patient required help with getting up. Denies prior back injury, preceding chest pain, shortness of breath or dizziness. Denies loss of consciousness. Tetanus is up-to-date. Patient complaining of left-sided mid back pain. TRAVEL OUTSIDE OF THE [place] IN LAST 30 DAYS: No - HPI Onset: Just prior to arrival Onset/Duration: Sudden, Persistent, Worse Quality of pain: Stabbing, Throbbing Severity: Moderate Pain Level: 3 Associated symptoms: Hurts to breath Exacerbated by: Movement Relieved by: Remaining still Similar symptoms previously: No Recently seen / treated by doctor: No - Related Data Allergies/Adverse Reactions: No Known Allergies Allergy (Verified 06/25/17 07:04) Past Medical History - General Information source: Patient, [facility] Records - Social History Smoking Status: Never Smoker Smoking Education Provided: No Frequency of alcohol use: Occasional Drug Abuse: Marijuana Lives with: Family Family History: None Patient has suicidal ideation: No Patient has homicidal ideation: No - Past Medical History Cardiac Medical History: Reports: Hx Atrial Fibrillation, Hx Hypertension Denies: Hx Congestive Heart Failure, Hx DVT, Hx Heart Attack, Hx Hypercholesterolemia, Hx Pulmonary Embolism Pulmonary Medical History: Denies: Hx Asthma, Hx COPD, Hx Sleep Apnea Neurological Medical History: Denies: Hx Seizures Endocrine Medical History: Denies: Hx Diabetes Mellitus Type 1, Hx Diabetes Mellitus Type 2, Hx Hyperthyroidism, Hx Hypothyroidism Renal/ Medical History: Denies: Hx Peritoneal Dialysis GI Medical History: Denies: Hx Cirrhosis, Hx Gastroesophageal Reflux Disease, Hx Hepatitis Psychiatric Medical History: Denies: Hx Depression Infectious Medical History: Reports: Hx MRSA. Denies: Hx C-Diff, Hx Hepatitis Past Surgical History: Reports: Hx Cardiac Catheterization, Hx Orthopedic Surgery - R hand R foot - Immunizations Hx Diphtheria, Pertussis, Tetanus Vaccination: No Review of Systems - Review of Systems Notes: REVIEW OF SYSTEMS: CONSTITUTIONAL : Denies fever, chills, or sweats. Denies recent illness. Denies weight loss, recent hospitalizations. EENT: Denies visual changes, eye pain. Denies nasal or sinus congestion or discharge. Denies sore throat, oral lesions, difficulty swallowing. CARDIOVASCULAR: Denies chest pain. Denies palpitations. Denies lower extremity edema. RESPIRATORY: Denies cough, cold, or chest congestion. Denies shortness of breath, wheezing. GASTROINTESTINAL: Denies abdominal pain or distention. Denies nausea, vomiting , or diarrhea. Denies blood in vomitus, stools, or per rectum. Denies black, tarry stools. Denies constipation. GENITOURINARY: Denies difficulty urinating, painful urination, frequency, blood in urine, MUSCULOSKELETAL: Denies neck pain or stiffness. Denies joint pain or swelling. SKIN: Denies rash, lesions or sores. HEMATOLOGIC : Denies easy bruising or bleeding. LYMPHATIC: Denies swollen glands. NEUROLOGICAL: Denies confusion or altered mental status. Denies passing out or loss of consciousness. Denies dizziness or lightheadedness. Denies headache. Denies weakness or paralysis. Denies problems difficulty with ambulation, slurred speech. Denies sensory loss, numbness, or tingling. Denies seizures. PSYCHIATRIC: Denies anxiety or stress. Denies depression, suicidal ideation, or homicidal ideation. Denies visual or auditory hallucinations. Physical Exam - Vital signs Vitals: Temp Pulse Resp BP Pulse Ox 97.5 F 93 16 128/74 H 96 01/19/18 15:30 01/19/18 15:30 01/19/18 15:30 01/19/18 15:30 01/19/18 15:30 - Notes Notes: PHYSICAL EXAMINATION: GENERAL: Well-appearing, well-nourished and in no acute distress. GCS 15 HEAD: Atraumatic, normocephalic. EYES: Pupils equal round and reactive to light, extraocular movements intact, sclera anicteric, conjunctiva are normal. ENT: Nares patent, oropharynx clear without exudates. Moist mucous membranes. No hemanotympanum . No blood in nares. No dental fracture NECK: Normal range of motion, supple without lymphadenopathy. Trachea midline LUNGS: Breath sounds clear to auscultation bilaterally and equal. No wheezes rales or rhonchi. HEART: Regular rate and rhythm without murmurs. Pulses intact all throughout. ABDOMEN: Soft, nontender, nondistended abdomen. No guarding, no rebound. No masses appreciated. Musculoskeletal: Normal range of motion, no pitting or edema. No cyanosis. Hip non tender, stable. Midline tenderness of the thoracic and lumbar spine. Left paraspinal tenderness of the lumbar spine. No obvious deformity or step-off. NEUROLOGICAL: Cranial nerves grossly intact. Normal speech, normal gait. Normal sensory, motor, and reflex exams. PSYCH: Normal mood, normal affect. SKIN: Superficial abrasions to the right hand and right forearm approximately 1 inch. No ecchymosis to the back or flank. No crepitus. Course - Re-evaluation Re-evalutation: 57-year-old male with atrial fibrillation on Eliquis presents after a fall off of a ladder just prior to arrival. Patient states that the ladder became off balance causing him to fall approximately 4 feet directly onto his back and onto a tree stump in the yard. Patient denies head injury or loss of consciousness. He is complaining of severe left-sided mid back pain. There is no obvious crepitus, ecchymosis or deformity over the area. Patient was seen by myself upon arrival. Vital signs were reviewed. Patient is afebrile, normotensive and not hypoxic. Patient does not appear toxic or dehydrated. They are in mild distress. Previous medical records and nursing notes reviewed. Significant findings include x-rays that show left sided rib fractures without associated pneumothorax. No compression fractures seen on additional imaging. CT of the head within normal limits. Patient did receive IV Dilaudid during his ED course. He was provided an incentive spirometer and 3 days worth of pain medication. He was advised to ice the area and follow-up with his primary care physician for further pain management. Patient provided the opportunity to ask questions, and express concerns. Discharge instructions discussed. Patient is agreeable with discharge home. Return indications explained and discussed with the patient who displays understanding. Patient encouraged to return to the emergency department immediately with any concerns. 01/19/18 17:56 Patient made aware of findings of his rib fractures as well as a cystic area in his head found on CT. He does have an upcoming appointment with his primary care physician. I have provided him a copy of his CAT scan result. 01/19/18 23:25 01/19/18 23:26 - Vital Signs Vital signs: Temp Pulse Resp BP Pulse Ox 97.5 F 95 16 122/74 94 01/19/18 18:29 01/19/18 18:29 01/19/18 18:29 01/19/18 18:29 01/19/18 18:29 - Diagnostic Test Radiology reviewed: Image reviewed, Reports reviewed Discharge - Discharge Clinical Impression: Anticoagulated, Chronic atrial fibrillation Fall Qualifiers: Encounter type: initial encounter Qualified Code(s): W19.XXXA - Unspecified fall, initial encounter Left rib fracture Qualifiers: Encounter type: initial encounter Rib fracture type: multiple ribs Fracture type: closed Qualified Code(s): S22.42XA - Multiple fractures of ribs, left side , initial encounter for closed fracture Contusion of thoracic wall Qualifiers: Encounter type: initial encounter Contusion of thoracic wall detail: back wall of thorax Laterality: left Qualified Code(s): S20.222A - Contusion of left back wall of thorax, initial encounter Low back pain Qualifiers: Chronicity: acute Back pain laterality: left Sciatica presence: without sciatica Qualified Code(s): M54.5 - Low back pain Condition: Good Disposition: ADMITTED INPATIENT Instructions: Contusion ([facility]), Rib Injuries and Fractures ([facility]) Additional Instructions: You have been provided reports of your imaging done today. Please show these to your primary care physician. Prescriptions: Hydrocodone/Acetaminophen [[place] 5-325 mg Tablet] 1 tab PO Q6H #16 tablet Meloxicam [Mobic] 15 mg PO DAILY #7 tablet Forms: Return to Work Referrals: MAIA ROSE MD [NO LOCAL MD] - Follow up in 3-5 days
--- NOTE | 2018-01-19 16:34 | RADIOLOGY REPORT (SQ) ---
EXAM DESCRIPTION: RIBS LEFT W/PA CHEST COMPLETED DATE/TIME: 01/19/2018 4:20 pm REASON FOR STUDY: fall COMPARISON: None. TECHNIQUE: Frontal view of the chest and additional views of the left ribs acquired. NUMBER OF VIEWS: Four view. LIMITATIONS: None. FINDINGS: FRONTAL CXR: No pneumothorax. No pleural effusion. No atelectasis or infiltrates. RIBS: Mildly displaced transverse fractures of the left ribs 8 and 9 posteriorly. OTHER: No other significant finding. IMPRESSION: Mildly displaced fractures of left ribs 8 and 9. No pneumothorax. COMMENT: SITE OF TRAUMA/COMPLAINT MARKED/STAMP COMPLETED: No TECHNICAL DOCUMENTATION: JOB ID: [id number] [employer]- All Rights Reserved Reading location - IP/workstation name: [email or web address]
--- NOTE | 2018-01-19 16:34 | RADIOLOGY REPORT (SQ) ---
EXAM DESCRIPTION: SHOULDER LEFT 2 OR MORE VIEWS COMPLETED DATE/TIME: 01/19/2018 4:24 pm REASON FOR STUDY: fall COMPARISON: None. NUMBER OF VIEWS: Three views. TECHNIQUE: Internal rotation, external rotation, and Y view images acquired of the left shoulder. LIMITATIONS: None. FINDINGS: MINERALIZATION: Normal. BONES: No acute fracture or dislocation. No worrisome bone lesions. JOINTS: No dislocation. VISUALIZED LUNGS AND RIBS: No pneumothorax. No rib fracture. SOFT TISSUES: No radiopaque foreign body. OTHER: No other significant finding. IMPRESSION: NEGATIVE STUDY OF THE LEFT SHOULDER. NO RADIOGRAPHIC EVIDENCE OF ACUTE INJURY. TECHNICAL DOCUMENTATION: JOB ID: [id number] [employer]- All Rights Reserved Reading location - IP/workstation name: [email or web address]
--- NOTE | 2018-01-19 17:21 | RADIOLOGY REPORT (SQ) ---
EXAM DESCRIPTION: CT HEAD WITHOUT COMPLETED DATE/TIME: 01/19/2018 5:04 pm REASON FOR STUDY: Fall from ladder COMPARISON: None. TECHNIQUE: Axial images acquired through the brain without intravenous contrast. Images reviewed wi th bone, brain and subdural windows. Additional sagittal and coronal reconstructions were generated. Images stored on PACS. All CT scanners at this facility use dose modulation, iterative reconstruction, and/or weight based d osing when appropriate to reduce radiation dose to as low as reasonably achievable (ALARA). [facility]: Dose Right [facility]: CareDose [facility]: Dose Right [facility]: Teradose 4D [facility]: Smart [employer] RADIATION DOSE: CT Rad equipment meets quality standard of care and radiation dose reduction techniq ues were employed. CTDIvol: 53.2 mGy. DLP: 937 mGy-cm. mGy. LIMITATIONS: None. FINDINGS: VENTRICLES: Normal size and contour. CEREBRUM: No masses. No hemorrhage. No midline shift. No evidence for acute infarction. CEREBELLUM: Cystic area is identified adjacent to the right cerebellar hemisphere measuring 4.7 x 2.6 cm in diameters which could represent an arachnoid cyst or be related to encephalomalacia involving the right cerebellar hemisphere. No hemorrhage. No alteration of density. No evidence for acute in farction. EXTRAAXIAL SPACES: No fluid collections. No masses. ORBITS AND GLOBE: No intra- or extraconal masses. Normal contour of globe without masses. CALVARIUM: No fracture. PARANASAL SINUSES: No fluid or mucosal thickening. SOFT TISSUES: No mass or hematoma. OTHER: No other significant finding. IMPRESSION: Cystic area adjacent to the right cerebellar hemisphere as noted above which could repre sent an arachnoid cyst or be related to encephalomalacia involving the right cerebellar hemisphere. Other findings as noted above EVIDENCE OF ACUTE STROKE: NO. COMMENT: Quality ID # 436: Final reports with documentation of one or more dose reduction techniques (e.g., Automated exposure control, adjustment of the mA and/or kV according to patient size, use of iterative reconstruction technique) TECHNICAL DOCUMENTATION: JOB ID: [id number] [employer]- All Rights Reserved Reading location - IP/workstation name: [email or web address]
--- NOTE | 2018-01-19 17:26 | RADIOLOGY REPORT (SQ) ---
EXAM DESCRIPTION: CT THORACIC SPINE WITHOUT COMPLETED DATE/TIME: 01/19/2018 5:04 pm REASON FOR STUDY: Fall from ladder COMPARISON: None. TECHNIQUE: Axial images acquired through the thoracic spine without intravenous contrast. Images re viewed with lung, soft tissue and bone windows. Reconstructed coronal and sagittal MPR images review ed. Images stored on PACS. All CT scanners at this facility use dose modulation, iterative reconstruction, and/or weight based d osing when appropriate to reduce radiation dose to as low as reasonably achievable (ALARA). [facility]: Dose Right [facility]: CareDose [facility]: Dose Right [facility]: Teradose 4D [facility]: Smart [employer] RADIATION DOSE: CT Rad equipment meets quality standard of care and radiation dose reduction techniq ues were employed. CTDIvol: 94.0 mGy. DLP: 3732 mGy-cm. mGy. LIMITATIONS: None. FINDINGS: VISUALIZED LUNGS: No acute opacities. No pneumothorax. SOFT TISSUES: No soft tissue swelling. No masses. VERTEBRAL BODIES: No fractures. No dislocation. No acute findings. DISCS: No significant disc space reduction is seen. Osteophytic lipping is identified at multiple le vels P ALIGNMENT: Normal. TRANSVERSE PROCESSES, POSTERIOR ELEMENTS: No fractures. No dislocation. No acute findings. HARDWARE: None in the spine. VISUALIZED RIBS: No fractures. OTHER: No other significant finding. IMPRESSION: Degenerative changes without evidence for fracture. No significant vertebral compressio ns are identified. TECHNICAL DOCUMENTATION: JOB ID: [id number] Quality ID # [id number]: Final reports with documentation of one or more dose reduction techniques (e.g., Au tomated exposure control, adjustment of the mA and/or kV according to patient size, use of iterative reconstruction technique) 2010 [employer] All Rights Reserved Reading location - IP/workstation name: [email or web address]
--- NOTE | 2018-01-19 17:28 | RADIOLOGY REPORT (SQ) ---
EXAM DESCRIPTION: CT LUMBAR SPINE WITHOUT COMPLETED DATE/TIME: 01/19/2018 5:04 pm REASON FOR STUDY: Fall from ladder COMPARISON: None. TECHNIQUE: Axial images acquired through the lumbar spine without intravenous contrast. Images revi ewed with lung, soft tissue and bone windows. Reconstructed coronal and sagittal MPR images reviewed . All images stored on PACS. All CT scanners at this facility use dose modulation, iterative reconstruction, and/or weight based d osing when appropriate to reduce radiation dose to as low as reasonably achievable (ALARA). [facility]: Dose Right [facility]: CareDose [facility]: Dose Right [facility]: Teradose 4D [facility]: Smart [employer] RADIATION DOSE: mGy. LIMITATIONS: None. FINDINGS: SEGMENTATION: Normal. No transitional anatomy. ALIGNMENT: Normal. VERTEBRAL BODIES: No fractures. No dislocation. No acute findings. DISCS: There is almost complete loss of the L4-L5 disc space heights with associated osteophytic jaimee ing. No other significant disc space reduction is seen. PEDICLES, TRANSVERSE PROCESSES: No fractures. No dislocation. No acute findings. FACETS, POSTERIOR ELEMENTS: No fractures. No dislocation. Bilateral pars defect is identified at th e L5 level. HARDWARE: None in the spine. VISUALIZED RIBS: No fractures. SOFT TISSUES: No significant or acute finding in adjacent soft tissues. OTHER: No other significant finding. IMPRESSION: No acute fractures. No significant vertebral compressions are identified. Degenerative changes as noted above. Other findings as noted above TECHNICAL DOCUMENTATION: JOB ID: [id number] Quality ID # [id number]: Final reports with documentation of one or more dose reduction techniques (e.g., Au tomated exposure control, adjustment of the mA and/or kV according to patient size, use of iterative reconstruction technique) 2010 [employer]- All Rights Reserved Reading location - IP/workstation name: [email or web address]
[2018-01-19 18:53] VITALS: BP 122/74
== END 2018-01-19 18:46 | disposition home or self-care (01) ==
LOC: ER 15:24
DX: S22.42XA Multiple fractures of ribs, left side, initial encounter for closed fracture (principal); S20.222A Contusion of left back wall of thorax, initial encounter; R79.1 Abnormal coagulation profile; M54.5 Low back pain; W11.XXXA Fall on and from ladder, initial encounter; Y92.008 Other place in unspecified non-institutional (private) residence as the place of occurrence of the external cause; I48.91 Unspecified atrial fibrillation; I10 Essential (primary) hypertension; E78.00 Pure hypercholesterolemia, unspecified; Z79.02 Long term (current) use of antithrombotics/antiplatelets; Z86.14 Personal history of Methicillin resistant Staphylococcus aureus infection
CPT/HCPCS: 96376; 99285; 96374; 96375; 71101; 73030; 70450; 72128; 72131; J1170; J2405